=== PATIENT | male | born 1995 | race Two or more races ===

== ENCOUNTER 2024-06-22 13:27 | Emergency (ER) | payer MEDICAID, SELFPAY ==
--- NOTE | 2024-06-22 13:30 | EKG_ITS ---
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
--- NOTE | 2024-06-22 13:39 | XR_ITS ---
EXAMINATION: XR chest 2V ORDERING PROVIDER: OLIVA Liu HISTORY: Chest Pain TECHNIQUE: PA and Lateral radiographs of the chest. COMPARISON: None. FINDINGS: Lungs: Clear. Pleura: No pneumothorax or pleural effusion. Cardiomediastinal Silhouette: Normal. Soft Tissues/Bones: Normal. IMPRESSION: No acute pulmonary findings.
--- NOTE | 2024-06-22 13:40 | PD.EDRME ---
Rapid Medical Screening Exam [facility] Arrival date/time: 06/22/24 13:27 29-year-old male with no known medical history presents to the emergency room with a chief complaint of 10 out of 10 sternal chest pain that began this morning. Patient states the pain radiates down his abdomen and into his legs. I have greeted and performed a focused initial assessment of this patient. A comprehensive ED assessment and evaluation of the patient, analysis of all test results, and completion of the medical decision making process will be conducted by additional ED providers. Chief Complaint: Chest Pain Vital signs reviewed by provider: Yes
[2024-06-22 13:41] VITALS: BP 121/78; PULSE 119; RESP 22; TEMP 37.2; O2SAT 99
[2024-06-22 13:43] VITALS: BMI 28.2
[2024-06-22 14:35] LABS: Basophils # (Auto) 0.1 Thou/mm3 (0.0-0.2); Basophils % (Auto) 0 % (0-2.5); Eosinophils % (Auto) 0 % (0-10); Hematocrit 45.1 % (41.0-53.0); Immature Granulocytes % (Auto) 0 % (0-0); Immature Granulocytes Auto 0.04 Thou/mm3 (0.00-0.00); Lymphocytes # (Auto) 2.1 Thou/mm3 (1.0-4.8); Lymphocytes % (Auto) 17 % (10-50); Mean Corpuscular HGB Conc 35.5 g/dl (31.0-37.0); Mean Corpuscular Hemoglobin 29.5 pg (25.0-35.0); Mean Corpuscular Volume 83 fL (80-100); Monocytes # (Auto) 0.8 Thou/mm3 (0.0-0.8); Monocytes % (Auto) 6 % (0-12); Neutrophils # (Auto) 9.7 Thou/mm3 (1.8-7.7); Neutrophils % (Auto) 76 % (37-80); Nucleated Red Blood Cell % 0 /100 WBC (0); Platelet Count 289 Thou/mm3 (140-440); RDW Standard Deviation 36.8 fL (35.1-43.9); Red Blood Count 5.43 Miln/mm3 (4.50-5.90); White Blood Count 12.8 Thou/mm3 (3.8-10.6)
[2024-06-22 14:52] LABS: INR 1.2 (0.9-1.3); Partial Thromboplastin Time 27.1 Seconds (22.0-36.0); Prothrombin Time 13.2 Seconds (9.0-12.2)
[2024-06-22 14:53] LABS: B-Type Natriuretic Peptide < 20 pg/mL (0-100)
[2024-06-22 15:05] LABS: Alanine Aminotransferase 32 U/L (10-49); Albumin, Serum 4.9 gm/dL (3.5-5.0); Albumin/Globulin Ratio 2.1 (1.2-2.2); Alkaline Phosphatase 93 U/L (46-116); Anion Gap 13 (7-16); Aspartate Amino Transferase 28 U/L (0-34); BUN/Creatinine Ratio 11 Ratio (12-20); Bilirubin,Total 1.3 mg/dL (0.3-1.2); Blood Urea Nitrogen 12 mg/dL (9-23); Calcium 11.5 mg/dL (8.3-10.6); Calcium (Corrected) 11.5 mg/dL (8.5-10.1); Carbon Dioxide 28.4 mMol/L (20.0-31.0); Chloride 95 mMol/L (98-107); Creatinine (Component) 1.1 mg/dL (0.6-1.3); Estimated Creatinine Clearance 100.5 mL/min (>60); Globulin 2.3 gm/dL (2.3-3.5); Glucose 125 mg/dL (74-106); LDH (Lactate Dehydrogenase) 232 U/L (120-246); Magnesium 1.8 mg/dL (1.6-2.6); Osmolality,Calculated 272 (275-295); Potassium 2.8 mMol/L (3.4-5.1); Sodium 136 mMol/L (136-145); Total Protein 7.2 gm/dL (5.7-8.2); Troponin I < 0.020 ng/mL (0.0-0.045); eGFR > 60 See Note
[2024-06-22 15:30] VITALS: BP 124/77; PULSE 101; RESP 24; TEMP 36.4; O2SAT 97
--- NOTE | 2024-06-22 15:37 | EDNOTE_ITS ---
ED General RME/HPI General Chief complaint: Chest Pain Stated complaint: CHEST PAIN 5AM, ALL OVER PAIN Time Seen by Provider: 06/22/24 15:37 Arrival date/time: 06/22/24 13:27 CC: Epigastric center chest pain HPI onset 5 AM this morning woke him up. Patient states he ate some different food last night and immediately went to bed and woke up with this pain. Patient denies any nausea vomiting diarrhea. No prior history of similar events has no medications no allergies no PCP. Patient is very anxious tachypneic and tachycardic. RME / HPI RME / HPI narrative: 06/22/24 13:27 29-year-old male with no known medical history presents to the emergency room with a chief complaint of 10 out of 10 sternal chest pain that began this morning. Patient states the pain radiates down his abdomen and into his legs. I have greeted and performed a focused initial assessment of this patient. A comprehensive ED assessment and evaluation of the patient, analysis of all test results, and completion of the medical decision making process will be conducted by additional ED providers. Related Data Previous Rx's ?Medication ?Instructions ?Recorded Hydrocodone/Acetaminophen * (NORCO 1 tab PO Q4H PRN se janice pain #10 04/16/17 10/325 *) tabs clindamycin HCl 300 mg capsule 300 mg PO QID #40 caps 04/16/17 ibuprofen 600 mg tablet 600 mg PO Q6HR PRN PAIN #40 tabs 04/16/17 tobramycin 0.3 % eye drops 1 drp ophthalmic (eye) Q4H #5 mL 10/14/22 pantoprazole 20 mg tablet,delayed 20 mg PO QDAY #30 ta bs 06/22/24 release (Protonix) Allergies Allergy/AdvReac Type Severity Reaction Status Date / Time No Known Allergies AdvReac Unknown Uncoded 06/22/24 13:29 Review of Systems Review of Systems Narrative Review of Systems: GEN: No fever, no chills, no weight loss EYES: No discharge, no visual changes, no pain HEENT: No ear pain, no congestion, no sore throat PULM: No shortness of breath, no cough, no congestion CV: No chest pain, no dyspnea on exertion, no palpitations GI: No nausea, no vomiting, no diarrhea, + pain, no constipation : No frequency, no urgency, no dysuria MUSC/SKEL: No joint pain, no back pain SKIN: No rash PSYCH: No hallucinations, no depression HEME/LYMPH: No easy bleeding or bruising tendencies NEURO: No weakness, no headache Past Medical History Past Medical History CARDIAC: Negative Cardiac Disorders, Myocardial Infarction, Hypercholesterolemia, Congestive Heart Failure or Hypertension RESPIRATORY: Negative Chronic Obstructive Pulmonary Disease (COPD) or Asthma GASTROINTESTINAL: Negative Gastrointestinal Disorders, Gastrointestinal Bleed, Hemorrhoids or Gastroesophageal Reflux Disease GENITOURINARY: Negative Genitourinary Disorders or Renal Disease ENDOCRINE: Negative Endocrine Disorders, Diabetes Mellitus Type 1, Diabetes Mellitus Type 2, Hyperthyroidism or Hypothyroidism OTHER HISTORY: Negative Human Immunodeficiency Virus (HIV), Chicken Pox or Cancer Social History SMOKING STATUS: Never smoker ED Exam Narrative Physical exam: [General: In moderate discomfort but not in any acute distress Head normocephalic HEENT: Eyes pupils are PERRLA EOMs are intact. All the subsystems of HEENT are within acceptable limits Neck is supple nontender Chest equal chest rise nontender to palpation Respiratory: Tachypneic, clear to auscultation no wheezes crackles or rubs CV: Rate rhythm is regular, tachycardic, no murmurs rubs or clicks Abdomen epigastric pain with palpation no reflexive guarding or rebound tenderness Back: No CVA tenderness no spinous process tenderness from cervical spine thoracic and lumbar spine Skin: Intact no petechiae rash induration ulceration or crepitus Extremities: Moving all extremity against resistance cap refill less than 2 seconds neurosensory intact Neuro: Awake alert oriented x3 Glascow coma 15 no focal deficits] Course Quality Measures none Orders Category Date Time Status EKG (ED ONLY) *Do not use* NOW Care 06/22/24 13:30 Completed EKG (ED Only) Stat Exams 06/22/24 13:30 Draft XR chest 2V Stat Exams 06/22/24 13:39 Completed B-Type Natriuretic Peptide Stat Lab 06/22/24 14:27 Completed CBC Stat Lab 06/22/24 14:27 Completed Comprehensive Metabolic Panel Stat Lab 06/22/24 14:27 Completed Drug Screen,Urine Stat Lab 06/22/24 13:39 Ordered LDH (Lactate Dehydrogenase) Stat Lab 06/22/24 14:27 Completed Magnesium Stat Lab 06/22/24 14:27 Completed Partial Thromboplastin Time Stat Lab 06/22/24 14:27 Completed Prothrombin Time with INR Stat Lab 06/22/24 14:27 Completed Troponin I Stat Lab 06/22/24 14:27 Completed Urinalysis Stat Lab 06/22/24 13:39 Ordered Lidocaine 2% Viscous [Xylocaine 2% Viscous] Med 06/22/24 15:33 Discontinued 15 ml PO X1 ONE Ondansetron Odt [Zofran Odt] Med 06/22/24 15:33 Discontinued 4 mg PO X1 ONE mg Hyd/Al Hyd/Martinez Susp [Maalox Susp] Med 06/22/24 15:33 Discontinued 30 ml PO X1 ONE Vital Signs Vital signs: Vital Signs Temperature 98.9 F 06/22/24 13:41 Pulse Rate 119 H 06/22/24 13:41 Respiratory Rate 22 H 06/22/24 13:41 Blood Pressure 121/78 06/22/24 13:41 Pulse Oximetry (%) 99 06/22/24 13:41 Oxygen Delivery Method Room Air 06/22/24 13:41 [facility] Patient data External records reviewed:: [facility] previous records Clinical information provided by:: patient Social determinants that could affect healthcare access:: none Patient has the following chronic illnesses:: None How is presenting disease/condition affected by chronic disease/condition?: u neffected by Evaluation data The following diagnostics were reviewed and interpreted by me:: lab results, radiology exam(s) and EKG tracing(s) Lab and/or radiology exams considered but not ordered:: EKG performed 1335 shows a ventricular rate of 127 NH interval 103 QRS of 102 QTc of 428 sinus tachycardia CBC shows leukocytosis of 12.8 no other anemia thrombocytopenia CMP shows coags within acceptable limits CMP shows a potassium of 2.8 chloride of 95 CO2 28.4 glucose of 125 T. bili of 1.3 no transaminitis Troponin is negative BNP is negative Chest x-ray is negative for any acute finding Interpretation Summary: Patient's pain is located in the epigastrium I suspect this is all reflux. Patient had significant relief after Maalox and viscous lidocaine patient will be started on Protonix, discharged home. He is has instructions to not eat any food for 2 hours before going to sleep, and a bland diet for the next 2 weeks including no alcohol. Patient and significant other expressed understanding. Medications Medications considered but not ordered:: None Medication administrations:: Medication Administration History Discontinued Medications Al Hydrox/Mg Hydrox/Simethicone (Mg Hyd/Al Hyd/Martinez (Maalox Reg) Susp 30 Ml Udc) 30 ml PO X1 ONE Stop: 06/22/24 15:34 Last Admin: 06/22/24 15:43 Dose: 30 ml Documented By: DO Lidocaine HCl (Lidocaine Viscous 2% 15 Ml Udc) 15 ml PO X1 ONE Stop: 06/22/24 15:34 Last Admin: 06/22/24 15:43 Dose: 15 ml Documented By: DO Ondansetron HCl (Ondansetron Odt 4 Mg Tabrap) 4 mg PO X1 ONE; Protocol Stop: 06/22/24 15:34 Last Admin: 06/22/24 15:43 Dose: 4 mg Documented By: DO None Consultations Consultation(s) initiated? (list below): No Diagnosis Differential Diagnosis ED Complaint MDM: Acid reflux GERD ACS RI Most likely diagnosis given after review of the tests above:: Acid reflux Admission Indicated Admission indicated?: not indicated Explain why admission is indicated or not indicated:: Stable for discharge Admission Request Was there a request for admission?: No Disposition Plan Disposition Plan: Discharge Discharge Attestation Discharge Attestation: The patient and all family members were given an opportunity to ask questions and understood the discharge instructions. Discharge instructions specifically effects, indications for sooner follow up or return to the emergency department, and the expected course of current diagnosis. Patient condition: Stable Medical Decision Making Differential Diagnosis Differential Diagnosis: Acid reflux GERD ACS RI Lab Data 06/22/24 14:27 06/22/24 14:27 Labs: Lab Results 06/22/24 Range/Units 14:27 WBC 12.8 H (3.8-10.6) Thou/mm3 RBC 5.43 (4.50-5.90) Miln/mm3 Hgb 16.0 (13.5-16.0) g/dL Hct 45.1 (41.0-53.0) % MCV 83 (80-100) fL MCH 29.5 (25.0-35.0) pg MCHC 35.5 (31.0-37.0) g/dl RDW Std Deviation 36.8 (35.1-43.9) fL Plt Count 289 (140-440) Thou/mm3 Neut % (Auto) 76 (37-80) % Lymph % (Auto) 17 (10-50) % [place] % (Auto) 6 (0-12) % Eos % (Auto) 0 (0-10) % Baso % (Auto) 0 (0-2.5) % Neut # (Auto) 9.7 H (1.8-7.7) Thou/mm3 Lymph # (Auto) 2.1 (1.0-4.8) Thou/mm3 [place] # (Auto) 0.8 (0.0-0.8) Thou/mm3 Eos # (Auto) 0.0 (0.0-0.5) Thou/mm3 Baso # (Auto) 0.1 (0.0-0.2) Thou/mm3 Immature Gran # (Auto) 0.04 H (0.00-0.00) Thou/mm3 Absolute Nucleated RBC 0.00 (0.00-0.00) Thou/mm3 Immature Gran % 0 (0-0) % Nucleated RBC % 0 (0) /100 WBC PT 13.2 H (9.0-12.2) Seconds INR 1.2 (0.9-1.3) APTT 27.1 (22.0-36.0) Seconds Sodium 136 (136-145) mMol/L Potassium 2.8 L (3.4-5.1) mMol/L Chloride 95 L (98-107) mMol/L Carbon Dioxide 28.4 (20.0-31.0) mMol/L Anion Gap 13 (7-16) BUN 12 (9-23) mg/dL Creatinine 1.1 (0.6-1.3) mg/dL Estim Creat Clear Calc 100.5 (>60) mL/min eGFR > 60 (60 - ) See Note BUN/Creatinine Ratio 11 L (12-20) Ratio Glucose 125 H (74-106) mg/dL Calculated Osmolality 272 L (275-295) Calcium 11.5 H (8.3-10.6) mg/dL Corrected Calcium 11.5 H (8.5-10.1) mg/dL Magnesium 1.8 (1.6-2.6) mg/dL Total Bilirubin 1.3 H (0.3-1.2) mg/dL AST 28 (0-34) U/L ALT 32 (10-49) U/L Alkaline Phosphatase 93 (46-116) U/L Lactate Dehydrogenase 232 (120-246) U/L Troponin I < 0.020 (0.0-0.045) ng/mL B-Natriuretic Peptide < 20 (0-100) pg/mL Total Protein 7.2 (5.7-8.2) gm/dL Albumin 4.9 (3.5-5.0) gm/dL Globulin 2.3 (2.3-3.5) gm/dL Albumin/Globulin Ratio 2.1 (1.2-2.2) Discharge Plan Plan Patient Disposition: HOME (Self Care) Patient condition on transfer: Stable Prescriptions/Referrals Prescriptions/Med Rec: New pantoprazole [Protonix] 20 mg tablet,delayed release (DR/EC) 20 mg PO QDAY Qty: 30 0RF No Action clindamycin HCl 300 MG capsule 300 mg PO QID Qty: 40 0RF ibuprofen 600 MG tablet 600 mg PO Q6HR PRN (Reason: PAIN) Qty: 40 0RF Hydrocodone/Acetaminophen * (NORCO 10/325 *) 1 TAB tablet 1 tab PO Q4H PRN (Reason: severe pain) Qty: 10 0RF tobramycin 0.3 % drops 1 drp ophthalmic (eye) Q4H Qty: 5 0RF Referrals: Maxx Damon MD [Physician] - In 1 week No Primary/Family,Physician [Primary Care Provider] - In 1 week Problem List Clinical Impression: Acid reflux Patient/Caregiver Discharge Instructions Education Materials: ED Diet, [place] (Adult), ED GERD (Adult) Print Language: Upper Sorbian Stand Alone Forms: Mi Award Info., Patient Portal Info Letter, Work/School Release PA/PERFECT BINDER FEEDER OFFBEARER Supervising Physician PA/PERFECT BINDER FEEDER OFFBEARER Supervising Physician: Arnulfo Dupont ENP
[2024-06-22] MEDS: ONDANSETRON ODT 4 MG TABRAP PO (15:43)
[2024-06-22] MEDS: MG HYD/AL HYD/SIME (Maalox Reg) SUSP 30 ML UDC PO (15:43)
[2024-06-22] MEDS: LIDOCAINE VISCOUS 2% 15 ML UDC PO (15:43)
== END 2024-06-22 16:28 | disposition home or self-care (01) ==
PROVIDERS: Nurse Practitioner Family; Emergency Provider Emergency Medicine
DX: K21.9 Gastro-esophageal reflux disease without esophagitis (principal); R07.9 Chest pain, unspecified; R07.2 Precordial pain
CPT/HCPCS: 36415; 71046; 80053; 80307; 81001; 83615; 83735; 83880; 84484; 85025; 85610; 85730; 93005; 99283; J3490; Q0162; A9270

== ENCOUNTER 2024-06-25 11:52 | Emergency (ER) | payer MEDICAID, SELFPAY ==
[2024-06-25 12:03] VITALS: BP 143/96; PULSE 78; RESP 18; TEMP 36.7; O2SAT 99
--- NOTE | 2024-06-25 12:03 | PD.EDADULT ---
ED General RME/HPI General Chief complaint: Dental/Oral/Throat Stated complaint: DENTAL PAIN Time Seen by Provider: 06/25/24 11:57 Arrival date/time: 06/25/24 11:52 CC: Dental pain HPI onset approximately 2 hours ago. denies any nausea vomiting fever chills shortness of breath difficulty breathing. No OTC medicines taken. Related Data Previous Rx's ?Medication ?Instructions ?Recorded Hydrocodone/Acetaminophen * (NORCO 1 tab PO Q4H PRN severe pain #10 04/16/17 10/325 *) tabs clindamycin HCl 300 mg capsule 300 mg PO QID #40 caps 04/16/17 ibuprofen 600 mg tablet 600 mg PO Q6HR PRN PAIN #40 tabs 04/16/17 tobramycin 0.3 % eye drops 1 drp ophthalmic (eye) Q4H #5 mL 10/14/22 pantoprazole 20 mg tablet,delayed 20 mg PO QDAY #30 tabs 06/22/24 release (Protonix) amoxicillin 500 mg tablet 500 mg PO BID #14 tabs 06/25/24 meloxicam 7.5 mg tablet 7.5 mg PO QDAY #10 tabs 06/25/24 Allergies Allergy/AdvReac Type Severity Reaction Status Date / Time No Known Allergies AdvReac Unknown Uncoded 06/22/24 13:29 Review of Systems Review of Systems Narrative Review of Systems: GEN: No fever, no chills, no weight loss EYES: No discharge, no visual changes, no pain HEENT: No ear pain, no congestion, no sore throat, dental pain PULM: No shortness of breath, no cough, no congestion CV: No chest pain, no dyspnea on exertion, no palpitations GI: No nausea, no vomiting, no diarrhea, no pain, no constipation : No frequency, no urgency, no dysuria MUSC/SKEL: No joint pain, no back pain SKIN: No rash PSYCH: No hallucinations, no depression HEME/LYMPH: No easy bleeding or bruising tendencies NEURO: No weakness, no headache Past Medical History Past Medical History CARDIAC: Negative Cardiac Disorders, Myocardial Infarction, Hypercholesterolemia, Congestive Heart Failure or Hypertension RESPIRATORY: Negative Chronic Obstructive Pulmonary Disease (COPD) or Asthma GASTROINTESTINAL: Negative Gastrointestinal Disorders, Gastrointestinal Bleed, Hemorrhoids or Gastroesophageal Reflux Disease GENITOURINARY: Negative Genitourinary Disorders or Renal Disease ENDOCRINE: Negative Endocrine Disorders, Diabetes Mellitus Type 1, Diabetes Mellitus Type 2, Hyperthyroidism or Hypothyroidism OTHER HISTORY: Negative Human Immunodeficiency Virus (HIV), Chicken Pox or Cancer Social History SMOKING STATUS: Never smoker ED Exam Narrative Physical exam: [General: Mild discomfort on any acute distress Head normocephalic HEENT: Mouth: [place] moist membranes uvula is midline, tooth #4 has open erosion through the mantle into the core. No surrounding erythema or edema otherwise patient has overall poor dentition. Swallow symmetrical phonation is normal no facial edema. All other subsystems HEENT are within acceptable limits Neck is supple nontender Chest equal chest rise nontender to palpation Respiratory: Clear to auscultation no wheezes crackles or rubs CV: Rate rhythm is regular no murmurs rubs or clicks Abdomen is soft nontender no masses positive bowel sounds all 4 quadrants ] Course Quality Measures none Orders Category Date Time Status Amoxicillin Cap [Amoxil Cap] Med 06/25/24 12:02 Once 500 mg PO X1 ONE oxyCODONE/APAP 5/325 [Percocet 5/325] Med 06/25/24 12:02 Once 1 tab PO X1 ONE [facility] Patient data External records reviewed:: [facility] previous records Clinical information provided by:: patient Social determinants that could affect healthcare access:: none Patient has the following chronic illnesses:: None How is presenting disease/condition affected by chronic disease/condition?: uneffected by Evaluation data The following diagnostics were reviewed and interpreted by me:: other (specify) (None) Lab and/or radiology exams considered but not ordered:: None Interpretation Summary: Dental caries dental pain Medications Medications considered but not ordered:: None Medication administrations:: None Consultations Consultation(s) initiated? (list below): No Diagnosis Differential Diagnosis ED Complaint MDM: Dental caries dental abscess dental pain Most likely diagnosis given after review of the tests above:: Dental caries dental pain Admission Indicated Admission indicated?: not indicated Explain why admission is indicated or not indicated:: Stable for outpatient follow-up Admission Request Was there a request for admission?: No Disposition Plan Disposition Plan: Discharge Discharge Attestation Discharge Attestation: The patient and all family members were given an opportunity to ask questions and understood the discharge instructions. Discharge instructions specifically effects, indications for sooner follow up or return to the emergency department, and the expected course of current diagnosis. Patient condition: Stable Medical Decision Making Differential Diagnosis Differential Diagnosis: Dental caries dental abscess dental pain Discharge Plan Plan Patient Disposition: HOME (Self Care) Patient condition on transfer: Stable Prescriptions/Referrals Prescriptions/Med Rec: New amoxicillin 500 mg tablet 500 mg PO BID Qty: 14 0RF meloxicam 7.5 mg tablet 7.5 mg PO QDAY Qty: 10 0RF No Action clindamycin HCl 300 MG capsule 300 mg PO QID Qty: 40 0RF ibuprofen 600 MG tablet 600 mg PO Q6HR PRN (Reason: PAIN) Qty: 40 0RF Hydrocodone/Acetaminophen * (NORCO 10/325 *) 1 TAB tablet 1 tab PO Q4H PRN (Reason: severe pain) Qty: 10 0RF pantoprazole [Protonix] 20 mg tablet,delayed release (DR/EC) 20 mg PO QDAY Qty: 30 0RF tobramycin 0.3 % drops 1 drp ophthalmic (eye) Q4H Qty: 5 0RF Referrals: Maxx Damon MD [Physician] - In 1 week Problem List Clinical Impression: Pain due to dental caries Patient/Caregiver Discharge Instructions Other Activity Instructions:: Follow-up with a dentist to soon as possible otherwise this will continue to cause pain and become infected Education Materials: Understanding Tooth Decay, ED Dental Cavity Print Language: Occitan Stand Alone Forms: Mi Award Info., Patient Portal Info Letter, Work/School Release PA/OLIVA Supervising Physician PA/LASTER HAND Supervising Physician: Arnulfo Dupont ENP
[2024-06-25] MEDS: AMOXICILLIN 250 MG CAPSULE 500 MG PO (12:12)
[2024-06-25] MEDS: oxyCODONE/APAP 5/325 TABLET 1 TAB PO (12:12)
--- NOTE | 2024-06-25 12:13 | PC.NURSE ---
pt is dc
== END 2024-06-25 12:13 | disposition home or self-care (01) ==
LOC: SERX 12:18
PROVIDERS: Emergency Provider Emergency Medicine
DX: K02.9 Dental caries, unspecified (principal)
CPT/HCPCS: 99283; A9270

== ENCOUNTER 2024-10-03 15:51 | Emergency (ER) | payer MEDICAID, SELFPAY ==
--- NOTE | 2024-10-03 15:55 | EKG_ITS ---
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
[2024-10-03 15:56] VITALS: BP 156/78; PULSE 64; RESP 18; TEMP 36.9; O2SAT 99
--- NOTE | 2024-10-03 16:08 | XR_ITS ---
Examination: Abdomen sonogram, Limited Date and time of exam: October 03, 2024 1628 hours INDICATIONS: Right upper abdominal pain and nausea beginning 6:00 AM this morning Technique: Real-time skaggs scale transabdominal sonographic images of the upper abdomen obtained. Findings: Multiple gallstones Normal gallbladder wall Common bile duct 0.49 cm no stones Pancreas obscured by bowel gas Liver 14.9 cm no focal liver lesions Normal hepatopedal portal venous flow Patent IVC IMPRESSION: Cholelithiasis, negative for cholecystitis Normal common bile duct Liver normal size no focal liver lesions
--- NOTE | 2024-10-03 16:08 | XR_ITS ---
Examination: PA lateral chest 2 views TECHNIQUE: Upright PA and lateral chest 2 views Date and time: October 03, 2024, 1624 hours Comparison June 22, 2024 INDICATIONS: Chest pain today. FINDINGS: Normal heart size. Lungs are clear. Osseous structures are intact. IMPRESSION: No active disease.
[2024-10-03 16:35] LABS: Basophils % (Auto) 0 % (0-2.5); Eosinophils % (Auto) 0 % (0-10); Hematocrit 43.8 % (41.0-53.0); Hemoglobin 15.3 g/dL (13.5-16.0); Immature Granulocytes % (Auto) 0 % (0-0); Immature Granulocytes Auto 0.06 Thou/mm3 (0.00-0.00); Lymphocytes # (Auto) 1.9 Thou/mm3 (1.0-4.8); Lymphocytes % (Auto) 12 % (10-50); Mean Corpuscular HGB Conc 34.9 g/dl (31.0-37.0); Mean Corpuscular Hemoglobin 30.1 pg (25.0-35.0); Mean Corpuscular Volume 86 fL (80-100); Monocytes # (Auto) 0.4 Thou/mm3 (0.0-0.8); Monocytes % (Auto) 3 % (0-12); Neutrophils % (Auto) 85 % (37-80); Nucleated Red Blood Cell % 0 /100 WBC (0); Platelet Count 269 Thou/mm3 (140-440); RDW Standard Deviation 40.1 fL (35.1-43.9); Red Blood Count 5.09 Miln/mm3 (4.50-5.90); White Blood Count 15.4 Thou/mm3 (3.8-10.6)
[2024-10-03 16:50] LABS: B-Type Natriuretic Peptide < 20 pg/mL (0-100)
[2024-10-03 16:53] LABS: Alanine Aminotransferase 23 U/L (10-49); Albumin, Serum 4.9 gm/dL (3.5-5.0); Albumin/Globulin Ratio 2.3 (1.2-2.2); Alkaline Phosphatase 83 U/L (46-116); Anion Gap 10 (7-16); Aspartate Amino Transferase 18 U/L (0-34); BUN/Creatinine Ratio 8 Ratio (12-20); Bilirubin,Total 0.7 mg/dL (0.3-1.2); Blood Urea Nitrogen 8 mg/dL (9-23); Calcium 10.2 mg/dL (8.3-10.6); Calcium (Corrected) 10.2 mg/dL (8.5-10.1); Carbon Dioxide 21.7 mMol/L (20.0-31.0); Chloride 109 mMol/L (98-107); Globulin 2.1 gm/dL (2.3-3.5); Glucose 187 mg/dL (74-106); Lipase 33 U/L (12-53); Osmolality,Calculated 284 (275-295); Potassium 3.7 mMol/L (3.4-5.1); Sodium 141 mMol/L (136-145); Troponin I < 0.020 ng/mL (0.0-0.045); eGFR > 60 See Note
--- NOTE | 2024-10-03 17:43 | PC.NURSE ---
PT STATES HE DOES NOT WANT TO WAIT ANY LONGER AND WANTS TO CHANCE IT . THIS RN EDUCATED HIM ON IMPORTANCE OF STAYING TO FINISH WORK-UP. PT REFUSED, PUT HIS EMPTY SPECIMEN CUP ON THE TRIAGE DESK AND WALKED OUT.
--- NOTE | 2024-10-03 17:56 | PD.EDRME ---
Rapid Medical Screening Exam RME Arrival date/time: 10/03/24 15:51 This is a case of 29-year-old male who came into the emergency room due to chest pain and abdominal pain associated with nausea vomiting for 2 days I have greeted and performed a focused initial assessment of this patient.? Initial appropriate labs ordered at this time.? A comprehensive ED assessment and evaluation of the patient and analysis of all test and completion of medical decision making process will be conducted by additional ED provider. Chief Complaint: Chest Pain Time Seen by Provider: 10/03/24 15:53 Vital signs: Vital Signs Temperature 98.4 F 10/03/24 15:56 Pulse Rate 64 10/03/24 15:56 Respiratory Rate 18 10/03/24 15:56 Blood Pressure 156/78 H 10/03/24 15:56 Pulse Oximetry (%) 99 10/03/24 15:56 Oxygen Delivery Method Room Air 10/03/24 15:56
== END 2024-10-03 17:45 | disposition left against medical advice (07) ==
PROVIDERS: Nurse Practitioner Family; Emergency Provider Family Medicine; PCP Family Medicine
DX: K80.20 Calculus of gallbladder without cholecystitis without obstruction (principal); Z53.29 Procedure and treatment not carried out because of patient's decision for other reasons; R94.31 Abnormal electrocardiogram [ECG] [EKG]; R07.9 Chest pain, unspecified
CPT/HCPCS: 36415; 71046; 76705; 80053; 80307; 81001; 83690; 83880; 84484; 85025; 93005; 99281